=== PATIENT | female | born 1990 | race American Indian/Alaskan Native ===

== ENCOUNTER 2018-03-10 10:35 | Inpatient (IN) | payer SELFPAY ==
[2018-03-10] MEDS ORDERED: LACTATED RINGERS 500 ML IV ONE (11:31)
[2018-03-10] MEDS: PITOCin/NS 20 UNIT/1000ML DRIP 20 UNITS/1,000 ML BAG IV SCH ×2 (12:02→13:19)
[2018-03-10] MEDS ORDERED: PITOCin/NS 20 UNIT/1000ML DRIP 20,000 MILLIUNITS/1,000 ML BAG IV ONE (12:07)
[2018-03-10] MEDS ORDERED: ePHEDrine SULFATE IV PRN (12:15)
[2018-03-10] MEDS ORDERED: BRETHINE IVP PRN (12:15)
[2018-03-10] MEDS ORDERED: NARCAN 0.4 MG/1 ML IV PRN (12:15)
[2018-03-10] MEDS ORDERED: BRETHINE SUB-Q PRN (12:15)
[2018-03-10] MEDS ORDERED: XYLOCAINE 2% INFILTRATI ONE (12:15)
[2018-03-10] MEDS ORDERED: MINERAL OIL PO PRN (12:15)
[2018-03-10] MEDS ORDERED: PHENERGAN PO PRN ×2 (12:15→12:19)
[2018-03-10] MEDS ORDERED: ZOFRAN IV PRN ×2 (12:15→12:19)
--- NOTE | 2018-03-10 12:15 | History and Physical Report ---
History of Present Illness Date of examination: 03/10/18 Date of admission: 03/10/18 10:36 Chief complaint: vaginal bleeding Past History Past Medical History: heart disease (peripartum cardiomyopathy ) Past Surgical History: section - Obstetrical History : 6 Medications and Allergies Allergies Allergy/AdvReac Type Severity Reaction Status Date / Time No Known Allergies Allergy Unverified 03/10/18 11:31 - Vital Signs Vital signs: Vital Signs Pulse BP 90 108/52 03/10/18 11:04 03/10/18 11:04 Temp Pulse Resp BP Pulse Ox 77 97/56 03/10/18 12:17 03/10/18 12:17 Results All other labs normal. Assessment and Plan A/P IUP 35 weeks per patient Walkin from [place] Noted to be with bulging bag obtain records from [place] await for imminent delivery
[2018-03-10] MEDS ORDERED: TYLENOL PO PRN (12:19)
[2018-03-10] MEDS ORDERED: PERCOCET 5/325 PO PRN (12:19)
[2018-03-10] MEDS ORDERED: TUCKS PAD TP PRN (12:19)
[2018-03-10] MEDS ORDERED: DULCOLAX PR PRN (12:19)
[2018-03-10] MEDS ORDERED: BENADRYL PO PRN (12:19)
[2018-03-10] MEDS ORDERED: MILK OF MAGNESIA PO PRN (12:19)
[2018-03-10] MEDS ORDERED: PHENERGAN PR PRN (12:19)
[2018-03-10] MEDS ORDERED: LANSINOH TP PRN (12:19)
--- NOTE | 2018-03-10 12:34 | Procedure Note ---
OB Delivery Note - Delivery Date of Delivery: 03/10/18 Surgeon: RACHEL GERMAN Estimated blood loss: 200cc - Vaginal Delivery presentation: vertex Delivery position: OA Intrapartum events: meconium, precipitous labor- <3hr Delivery induction: none Delivery augmentation: rupture of membranes Delivery monitor: external FHT, external uterine Route of delivery: Indicators for instrumentation: nonreassuring FHR tracing Delivery placenta: spontaneous Delivery cord: 3 umbilical vessels Episiotomy: none Delivery laceration: none Anesthesia: none Delivery comments: Patient was noted to be complete with bulging bag. I evaluated patient and arom with meconium. Awaiting peds staff in [facility]. Patient began pushing but difficult to keep baby on monitor and audible decl. a VACCUUM APPLIED with one push patient delivered a viable female in OA presentation. The Apgars 8 and 9 weighing 6 pounds 15ounces. no lacerations noted. Baby handed to peds. Cord was clamped and cut and delivered intact with 3 vessel cord. Patient tolertated procedure wel.. awaiting records from [place]. Patient will recover in telemetry with unknown condition of jerrod Cardiomyopathy. Discussed with Dr. Castillo and he will accept transfer and will continue following for care. - A at 1 minute: 8 at 5 minutes: 9 Infant Gender: Female (6 pounds 15 ounces)
[2018-03-10] MEDS ORDERED: PITOCin/NS 30 UNIT/500ML 30 UNITS/500 ML BAG IV SCH ×2 (13:00)
[2018-03-10] MEDS ORDERED: LACTATED RINGERS 1,000 ML IV SCH (13:00)
[2018-03-10] MEDS ORDERED: SODIUM CHLORIDE FLUSH SYRINGE 10 ML IV NR (13:00)
[2018-03-10] MEDS: MOTRIN PO SCH ×2 (13:18→22:23)
[2018-03-10 13:49] LABS: Mean Corpuscular HGB Conc 30 % (30-34); Mean Corpuscular Volume 84 fl (79-97); Red Blood Count 4.62 M/mm3 (3.65-5.03); Red Cell Distribution Width 16.8 % (13.2-15.2)
[2018-03-10 13:50] LABS: Hematocrit 38.8 % (30.3-42.9); Hemoglobin 11.8 gm/dl (10.1-14.3); Mean Corpuscular Hemoglobin 26 pg (28-32); Platelet Count 81 K/mm3 (140-440)
[2018-03-10 14:10] LABS: Hepatitis C Virus Antibody Non-Reactive (NonReactive); Rubella IgG Antibody Immune (Immune)
[2018-03-10 14:53] LABS: Bilirubin,Urine NEG (Negative); Blood,Urine LG (Negative); Color,Urine Red (Yellow); Mucus,Urine 2+ /HPF
[2018-03-10 14:54] LABS: RBC,Urine > 182.0 /HPF (0.0-6.0); WBC,Urine > 182.0 /HPF (0.0-6.0)
[2018-03-10 15:05] LABS: Amphetamine Screen,Urine PRESUMPTIVE NEGATIVE; Benzodiazepines Screen,Urine PRESUMPTIVE NEGATIVE; Cannabinoid Screen,Urine PRESUMPTIVE NEGATIVE; Cocaine Screen,Urine PRESUMPTIVE NEGATIVE; Methadone Screen,Urine PRESUMPTIVE NEGATIVE; Opiate Screen,Urine PRESUMPTIVE NEGATIVE
--- NOTE | 2018-03-10 19:21 | Consultation ---
History of Present Illness - Reason for Consult Consult date: 03/10/18 medical management Requesting physician: RACHEL GERMAN - History of Present Illness History of present illness: 27-year-old -[place] female had delivered today around noon time. No postdelivery complications. Full-term and normal vaginal delivery. Patient had twins in the past and it was a . This was in 2011. Peripartum patient was diagnosed with cardiomyopathy in 2011. Patient has been taking Lasix 20 mg once a day potassium 10 mEq once a day and Coreg 3.125 mg twice a day till the conception 9 months ago. Patient was following at [facility]. Patient stopped taking Lasix and potassium and Coreg once the started. Patient did not have any shortness of breath or orthopnea or PND attacks during this . Patient being admitted to telemetry to avoid complications from cardiomyopathy. Patient does not have any chest pain or palpitations. Cardiology also was asked to follow. No fever or chills. Past History Past Medical History: heart failure (secondary to cardiomyopathy), hypertension (borderline) Past Surgical History: Social history: lives with family, full code. denies: smoking, alcohol abuse Family history: hypertension Medications and Allergies Allergies Allergy/AdvReac Type Severity Reaction Status Date / Time No Known Allergies Allergy Unverified 03/10/18 11:31 Home Medications Medication Instructions Recorded Confirmed Last Taken Type Ibuprofen [Motrin] 600 mg PO Q8H PRN #30 tablet 03/10/18 Unknown Rx Formula Tablet 1 tab PO QDAY 03/10/18 03/10/18 Unknown History oxyCODONE /ACETAMINOPHEN [Percocet 1 tab PO Q6HR PRN #30 tablet 03/10/18 Unknown Rx 5/325] Active Meds: Active Medications Acetaminophen (Tylenol) 650 mg PO Q4H PRN PRN Reason: Pain MILD(1-3)/Fever >100.5/LAL Acetaminophen/Hydrocodone Bitart ([place] 5/325) 2 each PO Q6H PRN PRN Reason: Pain, Moderate (4-6) Bisacodyl (Dulcolax) 10 mg LA BID PRN PRN Reason: Constipation Diphenhydramine HCl (Benadryl) 25 mg PO Q6H PRN PRN Reason: Itching Diphtheria/Tetanus/Acell Pertussis (Boostrix) 0.5 ml IM .ONCE ONE Stop: 03/11/18 06:01 Docusate Sodium (Colace) 100 mg PO BID ELIZABETH Ephedrine Sulfate (Ephedrine Sulfate) 10 mg IV Q2M PRN PRN Reason: Hypotension Lactated Ringer's (Lactated Ringers) 1,000 mls @ 65 mls/hr IV DIRECT ELIZABETH Oxytocin/Sodium Chloride (Pitocin/Ns 20 Unit/1000ml Drip) 20 units in 1,000 mls @ 125 mls/hr IV DIRECT ELIZABETH Last Admin: 03/10/18 13:19 Dose: 125 mls/hr Oxytocin/Sodium Chloride (Pitocin/Ns 30 Unit/500ml) 30 units in 500 mls @ 1 mls /hr IV TITR ELIZABETH; Protocol Oxytocin/Sodium Chloride (Pitocin/Ns 30 Unit/500ml) 30 units in 500 mls @ 0 mls /hr IV TITR ELIZABETH; Protocol Ibuprofen (Motrin) 600 mg PO Q6H ELIZABETH Last Admin: 03/10/18 13:18 Dose: 600 mg Magnesium Hydroxide (Milk Of Magnesia) 30 ml PO HS PRN PRN Reason: Constipation Measles/Mumps/Rubella Vaccine Live (M-M-R Ii Vaccine) 0.5 ml SUB-Q .ONCE ONE Stop: 03/11/18 06:01 Mineral Oil (Mineral Oil) 30 ml PO QHS PRN PRN Reason: Constipation Multi-Ingredient Ointment (Lansinoh) 1 applic TP PRN PRN PRN Reason: Sore Nipples Multivitamins/Iron/Calcium ( Vitamin) 1 each PO QDAY [facility] Naloxone HCl (Narcan 0.4 Mg/1 Ml) 0.1 mg IV Q2MIN PRN PRN Reason: Res Rate </= 8 or 02 SAT < 92% Ondansetron HCl (Zofran) 4 mg IV Q8H PRN PRN Reason: Nausea And Vomiting Oxycodone/Acetaminophen (Percocet 5/325) 1 tab PO Q6H PRN PRN Reason: Pain, Moderate (4-6) Promethazine HCl (Phenergan) 25 mg PO Q6H PRN PRN Reason: Nausea And Vomiting Promethazine HCl (Phenergan) 25 mg LA Q6H PRN PRN Reason: Nausea And Vomiting Sodium Chloride (Sodium Chloride Flush Syringe 10 Ml) 10 ml IV PRN NR Stop: 03/11/18 12:59 Terbutaline Sulfate (Brethine) 0.25 mg SUB-Q ONCE PRN PRN Reason: Hyperstimulation/Hypertonicity Terbutaline Sulfate (Brethine) 0.25 mg IVP ONCE PRN PRN Reason: Hyperstimulation/Hypertonicity Witch Arin/Glycerin (Tucks Pad) 1 each TP PRN PRN PRN Reason: Hemorrhoid/cleansing/soothing Review of Systems All systems: negative Constitutional: no weight loss, no weight gain, no fever, no chills Ears, nose, mouth and throat: no hoarseness, no sore throat, no swelling in mouth, no swelling in throat, no odynophagia Breasts: deferred Cardiovascular: no chest pain, no orthopnea, no palpitations, no rapid/ irregular heart beat, no edema, no syncope, no lightheadedness, no shortness of breath Respiratory: no cough, no cough with sputum, no excessive sputum, no hemoptysis , no shortness of breath, no dyspnea on exertion Gastrointestinal: no abdominal pain, no nausea, no vomiting, no diarrhea, no constipation, no change in bowel habits, no hematemesis, no coffee ground emesis Genitourinary Female: no dysuria, no urinary frequency, no urgency, no stress incontinence Menstruation: other (just delivered a baby today) Rectal: no pain Musculoskeletal: no neck stiffness, no neck pain, no shooting arm pain, no arm numbness/tingling, no low back pain, no shooting leg pain, no leg numbness/ tingling, no redness of joints Integumentary: no rash, no pruritis, no redness, no sores, no wounds Neurological: no seizures, no syncope Psychiatric: no anxiety, no memory loss, no change in sleep habits, no sleep disturbances Endocrine: no cold intolerance, no heat intolerance, no polyphagia, no excessive thirst Hematologic/Lymphatic: no easy bruising, no easy bleeding Allergic/Immunologic: no urticaria, no allergic rhinitis, no wheezing Exam - Physical Exam Narrative exam: Sitting in bed comfortably - Constitutional Vitals: Temp Pulse Resp BP Pulse Ox 98.0 F 74 20 106/68 98 03/10/18 17:03 03/10/18 17:03 03/10/18 17:03 03/10/18 17:03 03/10/18 17:03 General appearance: Present: no acute distress, well-nourished - EENT Eyes: Present: PERRL ENT: hearing intact, clear oral mucosa - Neck Neck: Present: supple, normal ROM - Respiratory Respiratory effort: normal Respiratory: bilateral: CTA - Cardiovascular Heart rate: 72 Rhythm: regular Heart Sounds: Present: S1 & S2. Absent: rub, click - Extremities Extremities: no ischemia, pulses intact, pulses symmetrical, No edema Peripheral Pulses: within normal limits - Abdominal General gastrointestinal: Present: soft, non-tender, non-distended, normal bowel sounds Female genitourinary: Present: normal - Rectal Rectal Exam: deferred - Integumentary Integumentary: Present: clear, warm, dry - Musculoskeletal Musculoskeletal: gait normal, strength equal bilaterally - Psychiatric Psychiatric: appropriate mood/affect, intact judgment & insight - Neurologic Neurologic: CNII-XII intact, moves all extremities - Allied Health Allied health notes reviewed: nursing, case management Results - Labs CBC & Chem 7: 03/10/18 12:54 Labs: Abnormal lab results 03/10/18 03/10/18 03/10/18 Range/Units 12:23 12:54 Unknown MCH 26 L (28-32) pg RDW 16.8 H (13.2-15.2) % Plt Count 81 L (140-440) K/mm3 POC ABG pH 7.327 L (7.35-7.45) POC ABG pO2 26 L (80-105) Urine WBC (Auto) > 182.0 H (0.0-6.0) /HPF - Imaging and Cardiology EKG: report reviewed (normal sinus rhythm 72/m) Assessment and Plan - Patient Problems (1) Acute diastolic heart failure Current Visit: Yes Status: Acute Plan to address problem: Mild To initiate Lasix if necessary Check echocardiogram (2) Cardiomyopathy Current Visit: Yes Status: Chronic Qualifiers: Cardiomyopathy type: unspecified Qualified Code(s): I42.9 - Cardiomyopathy , unspecified Plan to address problem: We will get echocardiogram Lasix if necessary Cardiology consult requested Patient is stable and not in any respiratory distress Introduce Coreg by cardiology if necessary Introduce Lasix by cardiology if necessary (3) Urinary tract infection Current Visit: Yes Status: Acute Qualifiers: Urinary tract infection type: acute cystitis Plan to address problem: IV Rocephin 2 g IV piggyback every 24 hours Check urine cultures for sensitivity (4) DVT prophylaxis Current Visit: Yes Status: Acute Plan to address problem: Lovenox 40 mg subcutaneous daily
[2018-03-10] MEDS: ROCEPHIN/NS 2 GM/100 ML 2 GM/100 ML BAG IV SCH (21:15)
[2018-03-10] MEDS: COLACE PO SCH (21:15)
[2018-03-10] MEDS: NORCO 5/325 PO PRN (21:26)
[2018-03-10 22:13] LABS: Alanine Aminotransferase 7 units/L (7-56); Albumin 3.1 g/dL (3.9-5); BUN/Creatinine Ratio 8; Blood Urea Nitrogen 4 mg/dL (7-17); Calcium 8.8 mg/dL (8.4-10.2); Hemolysis Index 3
[2018-03-11] MEDS: MOTRIN PO SCH ×4 (00:28→21:19)
[2018-03-11] MEDS: NORCO 5/325 PO PRN (05:36)
[2018-03-11 05:45] LABS: Basophils % (Auto) 0.3 % (0.0-1.8); Eosinophils # (Auto) 0.1 K/mm3 (0.0-0.4); Eosinophils % (Auto) 1.2 % (0.0-4.3); Hematocrit 32.7 % (30.3-42.9); Hemoglobin 10.7 gm/dl (10.1-14.3); Lymphocytes # (Auto) 3.4 K/mm3 (1.2-5.4); Lymphocytes % (Auto) 33.2 % (13.4-35.0); Mean Corpuscular HGB Conc 33 % (30-34); Mean Corpuscular Volume 78 fl (79-97); Monocytes # (Auto) 0.9 K/mm3 (0.0-0.8); Monocytes % (Auto) 8.9 % (0.0-7.3); Platelet Count 240 K/mm3 (140-440); Red Blood Count 4.19 M/mm3 (3.65-5.03); Red Cell Distribution Width 15.7 % (13.2-15.2)
[2018-03-11 05:46] LABS: Mean Corpuscular Hemoglobin 26 pg (28-32)
[2018-03-11] MEDS ORDERED: M-M-R II VACCINE SUB-Q ONE (06:00)
[2018-03-11] MEDS ORDERED: BOOSTRIX IM ONE (06:00)
[2018-03-11 06:08] LABS: BUN/Creatinine Ratio 7; Blood Urea Nitrogen 4 mg/dL (7-17); Calcium 9.1 mg/dL (8.4-10.2); Hemolysis Index 19
--- NOTE | 2018-03-11 08:33 | Progress Note ---
Assessment and Plan A/P PPD#1 s/p , hx of PP cardiomyopathy on telemetry for cardiac workup Doing well routine orders appreciate medicine and cardiology input Subjective - Subjective Date of service: 03/11/18 Principal diagnosis: s/p Patient reports: appetite normal, voiding normally, pain well controlled, ambulating normally : doing well Objective - Vital Signs Latest vital signs: Vital Signs Temp Pulse Resp BP BP Pulse Ox 03/11/18 07:37 99 03/11/18 04:19 97.4 F L 63 18 115/72 99 03/11/18 00:51 97.6 F 59 L 18 101/47 97 03/10/18 22:09 69 03/10/18 21:59 99 03/10/18 21:29 97.5 F L 68 18 129/84 95 03/10/18 17:03 98.0 F 74 20 106/68 98 03/10/18 13:49 68 128/69 03/10/18 13:45 98.0 F 03/10/18 13:34 70 122/68 03/10/18 13:16 98.4 F 18 03/10/18 13:04 68 129/72 03/10/18 12:57 88 91 03/10/18 12:55 72 98 03/10/18 12:50 86 98 03/10/18 12:43 68 98 03/10/18 12:38 78 98 03/10/18 12:34 75 120/61 03/10/18 12:33 77 100 03/10/18 12:28 72 99 03/10/18 12:26 75 80 L 03/10/18 12:23 75 99 03/10/18 12:19 65 109/59 03/10/18 12:18 67 99 03/10/18 12:17 77 97/56 03/10/18 12:08 86 109/75 03/10/18 11:04 90 108/52 Intake and Output 03/10/18 03/11/18 03/11/18 23:59 07:59 15:59 Output Total 2 Balance -2 Output: Urine 2 Void 2 Other: Total, Output Amount 2 Voiding Method Toilet # Bowel Movements 0 - Exam Breasts: Present: normal Cardiovascular: Present: Regular rate, Normal S1 Lungs: Present: Clear to auscultation, Normal air movement Abdomen: Present: normal appearance, soft, normal bowel sounds. Absent: distention, tenderness, guarding Vulva: both: normal Uterus: Present: normal, firm, fundal height below umbilicus. Absent: bogginess , tenderness Extremities: Present: normal Deep Tendon Reflex Grade: Normal +2 Incision: Present: normal - Labs Labs: Abnormal lab results 03/10/18 03/10/18 03/10/18 Range/Units 12:23 12:54 20:20 MCV (79-97) fl MCH 26 L (28-32) pg RDW 16.8 H (13.2-15.2) % Plt Count 81 L (140-440) K/mm3 [place] % (Auto) (0.0-7.3) % [place] # (0.0-0.8) K/mm3 POC ABG pH 7.327 L (7.35-7.45) POC ABG pO2 26 L (80-105) Potassium 3.5 L (3.6-5.0) mmol/L Carbon Dioxide 17 L (22-30) mmol/L BUN 4 L (7-17) mg/dL Creatinine 0.5 L (0.7-1.2) mg/dL Alkaline Phosphatase 154 H (35-129) units/L Total Protein 5.8 L (6.3-8.2) g/dL Albumin 3.1 L (3.9-5) g/dL Urine WBC (Auto) (0.0-6.0) /HPF 03/10/18 03/11/18 03/11/18 Range/Units Unknown 05:19 05:19 MCV 78 L (79-97) fl MCH 26 L (28-32) pg RDW 15.7 H (13.2-15.2) % Plt Count (140-440) K/mm3 [place] % (Auto) 8.9 H (0.0-7.3) % [place] # 0.9 H (0.0-0.8) K/mm3 POC ABG pH (7.35-7.45) POC ABG pO2 (80-105) Potassium (3.6-5.0) mmol/L Carbon Dioxide (22-30) mmol/L BUN 4 L (7-17) mg/dL Creatinine 0.6 L (0.7-1.2) mg/dL Alkaline Phosphatase (35-129) units/L Total Protein (6.3-8.2) g/dL Albumin (3.9-5) g/dL Urine WBC (Auto) > 182.0 H (0.0-6.0) /HPF
[2018-03-11] MEDS: COLACE PO SCH ×2 (10:23→21:19)
[2018-03-11] MEDS: ROCEPHIN/NS 2 GM/100 ML 2 GM/100 ML BAG IV SCH (10:23)
[2018-03-11] MEDS: PRENATAL VITAMIN PO SCH (10:35)
--- NOTE | 2018-03-11 11:22 | Progress Note ---
Assessment and Plan Assessment and plan: Acute diastolic heart failure Mild To initiate Lasix if necessary Check echocardiogram Cardiomyopathy We will get echocardiogram Lasix if necessary Cardiology consult requested Patient is stable and not in any respiratory distress Introduce Coreg by cardiology if necessary Introduce Lasix by cardiology if necessary Urinary tract infection IV Rocephin 2 g IV piggyback every 24 hours Check urine cultures for sensitivity PPD#1 s/p Cont per OB DVT prophylaxis Lovenox 40 mg subcutaneous daily History Interval history: No new issues Hospitalist Physical - Constitutional Vitals: Temp Pulse Resp BP Pulse Ox 98.7 F 75 20 110/62 98 03/11/18 08:42 03/11/18 08:42 03/11/18 08:42 03/11/18 08:42 03/11/18 08:42 General appearance: Present: no acute distress, well-nourished - EENT Eyes: Present: PERRL, EOM intact ENT: hearing intact, clear oral mucosa, dentition normal - Neck Neck: Present: supple, normal ROM - Respiratory Respiratory effort: normal Respiratory: bilateral: CTA - Cardiovascular Rhythm: regular Heart Sounds: Present: S1 & S2. Absent: gallop, rub - Extremities Extremities: no ischemia, No edema, Full ROM - Abdominal General gastrointestinal: soft, non-tender, non-distended, normal bowel sounds - Integumentary Integumentary: Present: clear, warm, dry - Neurologic Neurologic: CNII-XII intact, moves all extremities Results - Labs CBC & Chem 7: 03/11/18 05:19 03/11/18 05:19 Labs: Laboratory Last Values WBC 10.1 K/mm3 (4.5-11.0) 03/11/18 05:19 RBC 4.19 M/mm3 (3.65-5.03) 03/11/18 05:19 Hgb 10.7 gm/dl (10.1-14.3) 03/11/18 05:19 Hct 32.7 % (30.3-42.9) D 03/11/18 05:19 MCV 78 fl (79-97) L 03/11/18 05:19 MCH 26 pg (28-32) L 03/11/18 05:19 MCHC 33 % (30-34) 03/11/18 05:19 RDW 15.7 % (13.2-15.2) H 03/11/18 05:19 Plt Count 240 K/mm3 (140-440) D 03/11/18 05:19 Lymph % (Auto) 33.2 % (13.4-35.0) 03/11/18 05:19 [place] % (Auto) 8.9 % (0.0-7.3) H 03/11/18 05:19 Eos % (Auto) 1.2 % (0.0-4.3) 03/11/18 05:19 Baso % (Auto) 0.3 % (0.0-1.8) 03/11/18 05:19 Lymph # 3.4 K/mm3 (1.2-5.4) 03/11/18 05:19 [place] # 0.9 K/mm3 (0.0-0.8) H 03/11/18 05:19 Eos # 0.1 K/mm3 (0.0-0.4) 03/11/18 05:19 Baso # 0.0 K/mm3 (0.0-0.1) 03/11/18 05:19 Seg Neutrophils % 56.4 % (40.0-70.0) 03/11/18 05:19 Seg Neutrophils # 5.7 K/mm3 (1.8-7.7) 03/11/18 05:19 Sickle Cell Screen Negative (Negative) 03/10/18 12:54 POC ABG pH 7.327 (7.35-7.45) L 03/10/18 12:23 POC ABG pCO2 40.3 (35-45) 03/10/18 12:23 POC ABG pO2 26 (80-105) L 03/10/18 12:23 POC ABG HCO3 21.1 03/10/18 12:23 POC ABG Total CO2 22 03/10/18 12:23 POC ABG O2 Sat 44 03/10/18 12:23 POC ABG Base Excess -5 03/10/18 12:23 FiO2 21 % 03/10/18 12:23 Sodium 138 mmol/L (137-145) 03/11/18 05:19 Potassium 4.1 mmol/L (3.6-5.0) 03/11/18 05:19 Chloride 103.3 mmol/L (98-107) 03/11/18 05:19 Carbon Dioxide 23 mmol/L (22-30) 03/11/18 05:19 Anion Gap 16 mmol/L 03/11/18 05:19 BUN 4 mg/dL (7-17) L 03/11/18 05:19 Creatinine 0.6 mg/dL (0.7-1.2) L 03/11/18 05:19 Estimated GFR > 60 ml/min 03/11/18 05:19 BUN/Creatinine Ratio 7 % 03/11/18 05:19 Glucose 86 mg/dL (65-100) 03/11/18 05:19 Calcium 9.1 mg/dL (8.4-10.2) 03/11/18 05:19 Total Bilirubin 0.30 mg/dL (0.1-1.2) 03/10/18 20:20 AST 13 units/L (5-40) 03/10/18 20:20 ALT 7 units/L (7-56) 03/10/18 20:20 Alkaline Phosphatase 154 units/L (35-129) H 03/10/18 20:20 Total Protein 5.8 g/dL (6.3-8.2) L 03/10/18 20:20 Albumin 3.1 g/dL (3.9-5) L 03/10/18 20:20 Albumin/Globulin Ratio 1.1 % 03/10/18 20:20 Urine Color Red (Yellow) 03/10/18 Unknown Urine Turbidity Clear (Clear) 03/10/18 Unknown Urine pH 6.0 (5.0-7.0) 03/10/18 Unknown Ur Specific [place] 1.020 (1.003-1.030) 03/10/18 Unknown Urine Protein 100 mg/dl mg/dL (Negative) 03/10/18 Unknown Urine Glucose (UA) 50 mg/dL (Negative) 03/10/18 Unknown Urine Ketones 20 mg/dL (Negative) 03/10/18 Unknown Urine Blood Lg (Negative) 03/10/18 Unknown Urine Nitrite Neg (Negative) 03/10/18 Unknown Urine Bilirubin Neg (Negative) 03/10/18 Unknown Urine Urobilinogen 2.0 mg/dL (<2.0) 03/10/18 Unknown Ur Leukocyte Esterase Tr (Negative) 03/10/18 Unknown Urine WBC (Auto) > 182.0 /HPF (0.0-6.0) H 03/10/18 Unknown Urine RBC (Auto) > 182.0 /HPF (0.0-6.0) 03/10/18 Unknown U Epithel Cells (Auto) 8.0 /HPF (0-13.0) 03/10/18 Unknown Urine WBC Clumps 3+ /HPF 03/10/18 Unknown Urine Mucus 2+ /HPF 03/10/18 Unknown Urine Yeast (Budding) 2+ /HPF 03/10/18 Unknown Urine Opiates Screen Presumptive negative 03/10/18 Unknown Urine Methadone Screen Presumptive negative 03/10/18 Unknown Ur Barbiturates Screen Presumptive negative 03/10/18 Unknown Ur Phencyclidine Scrn Presumptive negative 03/10/18 Unknown Ur Amphetamines Screen Presumptive negative 03/10/18 Unknown U Benzodiazepines Scrn Presumptive negative 03/10/18 Unknown Urine Cocaine Screen Presumptive negative 03/10/18 Unknown U Marijuana (THC) Screen Presumptive negative 03/10/18 Unknown Drugs of Abuse Note Disclamer 03/10/18 Unknown Hep Bs Antigen Non-reactive (Negative) 03/10/18 12:54 Hepatitis C Antibody Non-reactive (NonReactive) 03/10/18 12:54 HIV 1&2 Antibody Rapid Non react (Non React) 03/10/18 12:54 HIV P24 Antigen Non react (Non React) 03/10/18 12:54 Rubella IgG Antibody Immune (Immune) 03/10/18 12:54 Blood Type O POSITIVE 03/10/18 15:50 Antibody Screen Negative 03/10/18 15:50
--- NOTE | 2018-03-11 13:38 | Consultation ---
History of Present Illness Consult date: 03/11/18 Consult reason: other (Peripartum cardiomyopathy) History of present illness: This is a 27yr old female who gives a history of jerrod- cardiomyopathy after giving to twins 6 years ago. Patient reports she had close follow up with [facility] and with an improved ejection fraction was taken off medications. Patient is now 1 day vaginal delivery. A cardiac consultation was requested for jerrod- cardiomyopathy. Patient denies shortness of breath and chest pain. Patient denies palpitations. Patient reports no plans for breast feeding. 12 lead ECG is a normal sinus rhythm. There are no arrhythmias seen on telemetry. Further cardiac evaluation with an echocardiogram shows a normal left ventricular systolic function, ejection fraction 50-55%. Past History Past Surgical History: Social history: lives with family, full code. denies: smoking, alcohol abuse Family history: hypertension Medications and Allergies Allergies Allergy/AdvReac Type Severity Reaction Status Date / Time No Known Allergies Allergy Unverified 03/10/18 11:31 Home Medications Medication Instructions Recorded Confirmed Last Taken Type Ibuprofen [Motrin] 600 mg PO Q8H PRN #30 tablet 03/10/18 Unknown Rx Formula Tablet 1 tab PO QDAY 03/10/18 03/10/18 Unknown History oxyCODONE /ACETAMINOPHEN [Percocet 1 tab PO Q6HR PRN #30 tablet 03/10/18 Unknown Rx 5/325] Active Meds: Active Medications Acetaminophen (Tylenol) 650 mg PO Q4H PRN PRN Reason: Pain MILD(1-3)/Fever >100.5/LAL Acetaminophen/Hydrocodone Bitart ([place] 5/325) 2 each PO Q6H PRN PRN Reason: Pain, Moderate (4-6) Last Admin: 03/11/18 05:36 Dose: 2 each Bisacodyl (Dulcolax) 10 mg IN BID PRN PRN Reason: Constipation Diphenhydramine HCl (Benadryl) 25 mg PO Q6H PRN PRN Reason: Itching Last Admin: 03/11/18 06:08 Dose: 25 mg Docusate Sodium (Colace) 100 mg PO BID ELIZABETH Last Admin: 03/11/18 10:23 Dose: 100 mg Ephedrine Sulfate (Ephedrine Sulfate) 10 mg IV Q2M PRN PRN Reason: Hypotension Lactated Ringer's (Lactated Ringers) 1,000 mls @ 65 mls/hr IV DIRECT ELIZABETH Oxytocin/Sodium Chloride (Pitocin/Ns 20 Unit/1000ml Drip) 20 units in 1,000 mls @ 125 mls/hr IV DIRECT ELIZABETH Last Admin: 03/10/18 13:19 Dose: 125 mls/hr Oxytocin/Sodium Chloride (Pitocin/Ns 30 Unit/500ml) 30 units in 500 mls @ 1 mls /hr IV TITR ELIZABETH; Protocol Oxytocin/Sodium Chloride (Pitocin/Ns 30 Unit/500ml) 30 units in 500 mls @ 0 mls /hr IV TITR ELIZABETH; Protocol Ceftriaxone Sodium (Rocephin/Ns 2 Gm/100 Ml) 2 gm in 100 mls @ 200 mls/hr IV Q24HR ELIZABETH; Protocol Last Admin: 03/11/18 10:23 Dose: 200 mls/hr Ibuprofen (Motrin) 600 mg PO Q6H [facility] Last Admin: 03/11/18 06:08 Dose: 600 mg Magnesium Hydroxide (Milk Of Magnesia) 30 ml PO HS PRN PRN Reason: Constipation Mineral Oil (Mineral Oil) 30 ml PO QHS PRN PRN Reason: Constipation Multi-Ingredient Ointment (Lansinoh) 1 applic TP PRN PRN PRN Reason: Sore Nipples Multivitamins/Iron/Calcium ( Vitamin) 1 each PO QDAY [facility] Last Admin: 03/11/18 10:35 Dose: 1 each Naloxone HCl (Narcan 0.4 Mg/1 Ml) 0.1 mg IV Q2MIN PRN PRN Reason: Res Rate </= 8 or 02 SAT < 92% Ondansetron HCl (Zofran) 4 mg IV Q8H PRN PRN Reason: Nausea And Vomiting Oxycodone/Acetaminophen (Percocet 5/325) 1 tab PO Q6H PRN PRN Reason: Pain, Moderate (4-6) Promethazine HCl (Phenergan) 25 mg PO Q6H PRN PRN Reason: Nausea And Vomiting Promethazine HCl (Phenergan) 25 mg IN Q6H PRN PRN Reason: Nausea And Vomiting Terbutaline Sulfate (Brethine) 0.25 mg SUB-Q ONCE PRN PRN Reason: Hyperstimulation/Hypertonicity Terbutaline Sulfate (Brethine) 0.25 mg IVP ONCE PRN PRN Reason: Hyperstimulation/Hypertonicity Witch Arin/Glycerin (Tucks Pad) 1 each TP PRN PRN PRN Reason: Hemorrhoid/cleansing/soothing Physical Examination Vital Signs Pulse BP 90 108/52 03/10/18 11:04 03/10/18 11:04 General appearance: no acute distress, obese HEENT: Positive: PERRL Cardiac: Positive: Reg Rate and Rhythm Lungs: Positive: Normal Breath Sounds Neuro: Positive: Grossly Intact Extremities: Absent: edema Results 03/11/18 05:19 03/11/18 05:19 Cardiac Enzymes 03/10/18 Range/Units 20:20 AST 13 (5-40) units/L CBC 03/10/18 03/11/18 Range/Units 12:54 05:19 WBC 7.5 10.1 (4.5-11.0) K/mm3 RBC 4.62 4.19 (3.65-5.03) M/mm3 Hgb 11.8 10.7 (10.1-14.3) gm/dl Hct 38.8 32.7 D (30.3-42.9) % Plt Count 81 L 240 D (140-440) K/mm3 Lymph # 3.4 (1.2-5.4) K/mm3 [place] # 0.9 H (0.0-0.8) K/mm3 Eos # 0.1 (0.0-0.4) K/mm3 Baso # 0.0 (0.0-0.1) K/mm3 Comprehensive Metabolic Panel 03/10/18 03/11/18 Range/Units 20:20 05:19 Sodium 138 138 (137-145) mmol/L Potassium 3.5 L 4.1 (3.6-5.0) mmol/L Chloride 102.2 103.3 (98-107) mmol/L Carbon Dioxide 17 L 23 (22-30) mmol/L BUN 4 L 4 L (7-17) mg/dL Creatinine 0.5 L 0.6 L (0.7-1.2) mg/dL Glucose 86 86 (65-100) mg/dL Calcium 8.8 9.1 (8.4-10.2) mg/dL AST 13 (5-40) units/L ALT 7 (7-56) units/L Alkaline Phosphatase 154 H (35-129) units/L Total Protein 5.8 L (6.3-8.2) g/dL Albumin 3.1 L (3.9-5) g/dL Assessment and Plan Vaginal delivery Hx of peripartum cardiomyopathy Echocardiogram shows a normal left ventricular systolic function, ejection fraction 50-55%. No further cardiac workup indicated. Ok for transfer to the mother/baby floor. Patient advised to f/u with her primary lock plater once discharged.
[2018-03-12] MEDS: MOTRIN PO SCH ×4 (03:59→21:40)
[2018-03-12 08:13] LABS: Basophils # (Auto) 0.1 K/mm3 (0.0-0.1); Basophils % (Auto) 0.8 % (0.0-1.8); Eosinophils # (Auto) 0.2 K/mm3 (0.0-0.4); Eosinophils % (Auto) 2.7 % (0.0-4.3); Hematocrit 30.4 % (30.3-42.9); Lymphocytes # (Auto) 3.4 K/mm3 (1.2-5.4); Lymphocytes % (Auto) 46.2 % (13.4-35.0); Mean Corpuscular HGB Conc 33 % (30-34); Mean Corpuscular Volume 78 fl (79-97); Monocytes # (Auto) 0.7 K/mm3 (0.0-0.8); Monocytes % (Auto) 9.4 % (0.0-7.3); Platelet Count 216 K/mm3 (140-440); Red Blood Count 3.91 M/mm3 (3.65-5.03); Red Cell Distribution Width 15.7 % (13.2-15.2)
[2018-03-12 08:21] LABS: Mean Corpuscular Hemoglobin 26 pg (28-32)
[2018-03-12 08:32] LABS: BUN/Creatinine Ratio 10; Blood Urea Nitrogen 6 mg/dL (7-17); Calcium 8.6 mg/dL (8.4-10.2); Hemolysis Index 35
--- NOTE | 2018-03-12 08:59 | Progress Note ---
Assessment and Plan Vaginal delivery Hx of peripartum cardiomyopathy Echocardiogram shows a normal left ventricular systolic function, ejection fraction 50-55%. No further cardiac workup indicated. Ok for transfer to the mother/baby floor. Patient advised to f/u with her primary real estate broker for repeat limited echo in 2-3 months as an outpatient, earlier if symptomatic. Subjective Date of service: 03/12/18 Principal diagnosis: s/p Interval history: Patient has no complaints. No events on telemetry monitoring overnight. Objective Vital Signs Temp Pulse Resp BP Pulse Ox 03/12/18 04:28 97.7 F 59 L 18 98/42 100 03/12/18 00:04 98.5 F 80 18 116/71 97 03/11/18 22:00 101 H 98 03/11/18 19:33 98.6 F 18 112/48 03/11/18 17:25 60 20 122/78 100 03/11/18 16:00 97.8 F 03/11/18 13:41 18 03/11/18 12:00 97.7 F 03/11/18 11:54 71 20 111/69 99 03/11/18 10:00 64 - Physical Examination General: No Apparent Distress HEENT: Positive: PERRL Cardiac: Positive: Reg Rate and Rhythm Lungs: Positive: Decreased Breath Sounds Neuro: Positive: Grossly Intact Extremities: Absent: edema - Labs and Meds CBC 03/12/18 Range/Units 06:10 WBC 7.4 (4.5-11.0) K/mm3 RBC 3.91 (3.65-5.03) M/mm3 Hgb 10.0 L (10.1-14.3) gm/dl Hct 30.4 (30.3-42.9) % Plt Count 216 (140-440) K/mm3 Lymph # 3.4 (1.2-5.4) K/mm3 [place] # 0.7 (0.0-0.8) K/mm3 Eos # 0.2 (0.0-0.4) K/mm3 Baso # 0.1 (0.0-0.1) K/mm3 Comprehensive Metabolic Panel 03/12/18 Range/Units 06:10 Sodium 140 (137-145) mmol/L Potassium 3.7 (3.6-5.0) mmol/L Chloride 103.5 (98-107) mmol/L Carbon Dioxide 21 L (22-30) mmol/L BUN 6 L (7-17) mg/dL Creatinine 0.6 L (0.7-1.2) mg/dL Glucose 67 (65-100) mg/dL Calcium 8.6 (8.4-10.2) mg/dL
[2018-03-12] MEDS: PRENATAL VITAMIN PO SCH (09:48)
[2018-03-12] MEDS: COLACE PO SCH ×2 (09:48→21:35)
--- NOTE | 2018-03-12 11:31 | Progress Note ---
Assessment and Plan Assessment and plan: Acute diastolic heart failure Continue per cardiology. Cardiomyopathy Echocardiogram shows a normal left ventricular systolic function, ejection fraction 50-55%. Cardiology feels there is no further cardiac workup indicated. Okay to transfer patient to mother/baby floor. 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 Urinary tract infection IV Rocephin 2 g IV piggyback every 24 hours Urine cultures are revealing. Antibodies can be discontinued at discharge PPD#1 s/p Cont per OB DVT prophylaxis Lovenox 40 mg subcutaneous daily Disposition. We will sign off. History Interval history: No new issues Hospitalist Physical - Constitutional Vitals: Temp Pulse Resp BP Pulse Ox 98.6 F 75 18 113/74 99 03/12/18 08:00 03/12/18 08:13 03/12/18 08:13 03/12/18 08:13 03/12/18 08:13 General appearance: Present: no acute distress, obese - EENT Eyes: Present: PERRL, EOM intact ENT: hearing intact, clear oral mucosa, dentition normal - Neck Neck: Present: supple, normal ROM - Respiratory Respiratory effort: normal Respiratory: bilateral: CTA - Cardiovascular Rhythm: regular Heart Sounds: Present: S1 & S2. Absent: gallop, rub - Extremities Extremities: no ischemia, No edema, Full ROM - Abdominal General gastrointestinal: soft, non-tender, non-distended, normal bowel sounds - Integumentary Integumentary: Present: clear, warm, dry - Neurologic Neurologic: CNII-XII intact, moves all extremities Results - Labs CBC & Chem 7: 03/12/18 06:10 03/12/18 06:10 Labs: Laboratory Last Values WBC 7.4 K/mm3 (4.5-11.0) 03/12/18 06:10 RBC 3.91 M/mm3 (3.65-5.03) 03/12/18 06:10 Hgb 10.0 gm/dl (10.1-14.3) L 03/12/18 06:10 Hct 30.4 % (30.3-42.9) 03/12/18 06:10 MCV 78 fl (79-97) L 03/12/18 06:10 MCH 26 pg (28-32) L 03/12/18 06:10 MCHC 33 % (30-34) 03/12/18 06:10 RDW 15.7 % (13.2-15.2) H 03/12/18 06:10 Plt Count 216 K/mm3 (140-440) 03/12/18 06:10 Lymph % (Auto) 46.2 % (13.4-35.0) H 03/12/18 06:10 [place] % (Auto) 9.4 % (0.0-7.3) H 03/12/18 06:10 Eos % (Auto) 2.7 % (0.0-4.3) 03/12/18 06:10 Baso % (Auto) 0.8 % (0.0-1.8) 03/12/18 06:10 Lymph # 3.4 K/mm3 (1.2-5.4) 03/12/18 06:10 [place] # 0.7 K/mm3 (0.0-0.8) 03/12/18 06:10 Eos # 0.2 K/mm3 (0.0-0.4) 03/12/18 06:10 Baso # 0.1 K/mm3 (0.0-0.1) 03/12/18 06:10 Seg Neutrophils % 40.9 % (40.0-70.0) 03/12/18 06:10 Seg Neutrophils # 3.0 K/mm3 (1.8-7.7) 03/12/18 06:10 Sickle Cell Screen Negative (Negative) 03/10/18 12:54 POC ABG pH 7.327 (7.35-7.45) L 03/10/18 12:23 POC ABG pCO2 40.3 (35-45) 03/10/18 12:23 POC ABG pO2 26 (80-105) L 03/10/18 12:23 POC ABG HCO3 21.1 03/10/18 12:23 POC ABG Total CO2 22 03/10/18 12:23 POC ABG O2 Sat 44 03/10/18 12:23 POC ABG Base Excess -5 03/10/18 12:23 FiO2 21 % 03/10/18 12:23 Sodium 140 mmol/L (137-145) 03/12/18 06:10 Potassium 3.7 mmol/L (3.6-5.0) 03/12/18 06:10 Chloride 103.5 mmol/L (98-107) 03/12/18 06:10 Carbon Dioxide 21 mmol/L (22-30) L 03/12/18 06:10 Anion Gap 19 mmol/L 03/12/18 06:10 BUN 6 mg/dL (7-17) L 03/12/18 06:10 Creatinine 0.6 mg/dL (0.7-1.2) L 03/12/18 06:10 Estimated GFR > 60 ml/min 03/12/18 06:10 BUN/Creatinine Ratio 10 % 03/12/18 06:10 Glucose 67 mg/dL (65-100) 03/12/18 06:10 Calcium 8.6 mg/dL (8.4-10.2) 03/12/18 06:10 Total Bilirubin 0.30 mg/dL (0.1-1.2) 03/10/18 20:20 AST 13 units/L (5-40) 03/10/18 20:20 ALT 7 units/L (7-56) 03/10/18 20:20 Alkaline Phosphatase 154 units/L (35-129) H 03/10/18 20:20 NT-Pro-B Natriuret Pep 101.5 pg/mL (0-450) 03/12/18 06:10 Total Protein 5.8 g/dL (6.3-8.2) L 03/10/18 20:20 Albumin 3.1 g/dL (3.9-5) L 03/10/18 20:20 Albumin/Globulin Ratio 1.1 % 03/10/18 20:20 Urine Color Red (Yellow) 03/10/18 Unknown Urine Turbidity Clear (Clear) 03/10/18 Unknown Urine pH 6.0 (5.0-7.0) 03/10/18 Unknown Ur Specific [place] 1.020 (1.003-1.030) 03/10/18 Unknown Urine Protein 100 mg/dl mg/dL (Negative) 03/10/18 Unknown Urine Glucose (UA) 50 mg/dL (Negative) 03/10/18 Unknown Urine Ketones 20 mg/dL (Negative) 03/10/18 Unknown Urine Blood Lg (Negative) 03/10/18 Unknown Urine Nitrite Neg (Negative) 03/10/18 Unknown Urine Bilirubin Neg (Negative) 03/10/18 Unknown Urine Urobilinogen 2.0 mg/dL (<2.0) 03/10/18 Unknown Ur Leukocyte Esterase Tr (Negative) 03/10/18 Unknown Urine WBC (Auto) > 182.0 /HPF (0.0-6.0) H 03/10/18 Unknown Urine RBC (Auto) > 182.0 /HPF (0.0-6.0) 03/10/18 Unknown U Epithel Cells (Auto) 8.0 /HPF (0-13.0) 03/10/18 Unknown Urine WBC Clumps 3+ /HPF 03/10/18 Unknown Urine Mucus 2+ /HPF 03/10/18 Unknown Urine Yeast (Budding) 2+ /HPF 03/10/18 Unknown Urine Opiates Screen Presumptive negative 03/10/18 Unknown Urine Methadone Screen Presumptive negative 03/10/18 Unknown Ur Barbiturates Screen Presumptive negative 03/10/18 Unknown Ur Phencyclidine Scrn Presumptive negative 03/10/18 Unknown Ur Amphetamines Screen Presumptive negative 03/10/18 Unknown U Benzodiazepines Scrn Presumptive negative 03/10/18 Unknown Urine Cocaine Screen Presumptive negative 03/10/18 Unknown U Marijuana (THC) Screen Presumptive negative 03/10/18 Unknown Drugs of Abuse Note Disclamer 03/10/18 Unknown RPR Nonreactive (Nonreactive) 03/10/18 12:54 Hep Bs Antigen Non-reactive (Negative) 03/10/18 12:54 Hepatitis C Antibody Non-reactive (NonReactive) 03/10/18 12:54 HIV 1&2 Antibody Rapid Non react (Non React) 03/10/18 12:54 HIV P24 Antigen Non react (Non React) 03/10/18 12:54 Rubella IgG Antibody Immune (Immune) 03/10/18 12:54 Blood Type O POSITIVE 03/10/18 15:50 Antibody Screen Negative 03/10/18 15:50
--- NOTE | 2018-03-12 11:37 | Progress Note ---
Assessment and Plan A: PPD#2 s/p at term H/o peripartum cardiomyopathy s/p Cardiology consultation and Echocardiogram with recommendation for follow up in 2-3 months Morbid Obesity P: Transfer to Mother-Baby Routine care Monitor yesika Subjective - Subjective Date of service: 03/12/18 Principal diagnosis: s/p ; h/o peripartum cardiomyopathy , morbid obesity Interval history: Pt c/o steady vaginal bleeding, and cramping improved with Motrin. Patient reports: appetite normal, voiding normally, no dizzy ambulation [place]: doing well Objective - Vital Signs Latest vital signs: Vital Signs Temp Pulse Resp BP Pulse Ox 03/12/18 08:13 75 18 113/74 99 03/12/18 08:00 98.6 F 03/12/18 04:28 97.7 F 59 L 18 98/42 100 03/12/18 00:04 98.5 F 80 18 116/71 97 03/11/18 22:00 101 H 98 03/11/18 19:33 98.6 F 18 112/48 03/11/18 17:25 60 20 122/78 100 03/11/18 16:00 97.8 F 03/11/18 13:41 18 03/11/18 12:00 97.7 F 03/11/18 11:54 71 20 111/69 99 Intake and Output 03/11/18 03/12/18 03/12/18 22:59 06:59 14:59 Intake Total 700 Balance 700 Intake: Oral 700 Other: Total, Intake Amount 220 Voiding Method Toilet Toilet - Exam Breasts: Present: deferred Cardiovascular: Present: Regular rate Lungs: Present: Clear to auscultation Abdomen: Present: soft (obese ) Uterus: Present: normal Extremities: Present: normal - Labs Labs: Abnormal lab results 03/12/18 03/12/18 Range/Units 06:10 06:10 Hgb 10.0 L (10.1-14.3) gm/dl MCV 78 L (79-97) fl MCH 26 L (28-32) pg RDW 15.7 H (13.2-15.2) % Lymph % (Auto) 46.2 H (13.4-35.0) % [place] % (Auto) 9.4 H (0.0-7.3) % Carbon Dioxide 21 L (22-30) mmol/L BUN 6 L (7-17) mg/dL Creatinine 0.6 L (0.7-1.2) mg/dL
[2018-03-12] MEDS: ROCEPHIN/NS 2 GM/100 ML 2 GM/100 ML BAG IV SCH (12:09)
[2018-03-12] MEDS: NORCO 5/325 PO PRN (21:34)
[2018-03-13] MEDS: MOTRIN PO SCH ×2 (01:47→10:40)
[2018-03-13] MEDS: NORCO 5/325 PO PRN (10:38)
[2018-03-13] MEDS: PRENATAL VITAMIN PO SCH (10:38)
[2018-03-13] MEDS: COLACE PO SCH (10:40)
--- NOTE | 2018-03-13 12:52 | Progress Note ---
Assessment and Plan A: PPD#3 s/p at term H/o peripartum cardiomyopathy s/p Cardiology consultation and Echocardiogram with recommendation for follow up in 2-3 months Morbid Obesity Asymptomatic anemia P: Discharge today with follow up in 1 week at the office. Subjective - Subjective Date of service: 03/13/18 Principal diagnosis: s/p ; h/o peripartum cardiomyopathy , morbid obesity Interval history: Pt reports that her vaginal bleeding and cramping are improved today. Denies chest pain and dyspnea. Patient reports: appetite normal, voiding normally, pain well controlled, ambulating normally, no nauseated [place]: doing well, bottle feeding Objective - Vital Signs Latest vital signs: Vital Signs Temp Pulse Resp BP BP Pulse Ox 03/13/18 10:40 20 03/13/18 10:38 20 03/13/18 07:40 99.0 F 72 18 114/70 99 03/13/18 01:43 98.3 F 89 18 108/81 03/12/18 16:33 99.0 F 71 16 114/70 98 03/12/18 13:10 99.4 F 78 16 120/76 100 03/12/18 13:00 98.2 F 81 20 112/71 Intake and Output 03/12/18 03/13/18 03/13/18 22:59 06:59 14:59 Intake Total 480 580 300 Balance 480 580 300 Intake: IV 100 ROCEPHIN/NS 2 GM/100 ML 2 100 gm In 100 ml @ 200 mls/ hr IV Q24HR ELIZABETH Rx#: [id number] Oral 480 300 Intake, Free Water 480 Other: Total, Intake Amount 480 300 Voiding Method Toilet Toilet # Voids Void 1 2 - Exam Breasts: Present: deferred Cardiovascular: Present: Regular rate Lungs: Present: Clear to auscultation Abdomen: Present: soft (obese ) Uterus: Present: fundal height at umbilicus Extremities: Present: normal
--- NOTE | 2018-03-13 13:19 | Discharge Summary ---
Providers - Providers Date of Admission: 03/10/18 10:36 Date of discharge: 03/13/18 Attending physician: LISESTTE LUZ 03/10/18 12:19 Consult to Physician [CONS] Urgent Comment: Consulting Provider: LIZBETH BRASWELL Physician Instructions: Reason For Exam: peripartum cardiomyopathy 03/10/18 19:31 Consult to Physician [CONS] Routine Comment: Consulting Provider: PRIYANK CORTES Physician Instructions: Reason For Exam: chf Primary care physician: RACHEL GERMAN MD Hospitalization Reason for admission: active labor Delivery: Procedure details: Please see delivery note. Episiotomy: none Laceration: none Other procedures: none complications: none Discharge diagnosis: IUP at term delivered [place] baby: female Hospital course: Pt was admitted to labor and delivery in second stage labor. She underwent a vaginal after section () which she tolerated well. The patient was noted to have a h/o peripartum cardiomyopathy so she was admitted to telemetry and Cardiology was consulted. An echocardiogram was performed which showed normal left ventricular systolic function, ejection fraction 50-55%. Once she was cleared by Cardiology, she was transferred to the Mother-Baby unit and observed for an additional night. By PPD#3, the patient met discharge criteria. She will follow up in the office in 1 week and has been instructed to follow up with Cardiology in 2-3 months. Condition at discharge: Stable Disposition: DC-01 TO HOME OR SELFCARE - Discharge Diagnoses (1) Vaginal after delivery Status: Acute (2) Morbid obesity Status: Acute (3) Anemia Status: Acute Qualifiers: Anemia type: unspecified type Qualified Code(s): D64.9 - Anemia, unspecified (4) Peripartum cardiomyopathy Status: Acute Plan - Discharge Medications Prescriptions: Ibuprofen [Motrin] 600 mg PO Q8H PRN #30 tablet PRN Reason: Pain Nitrofurantoin Monohyd/M-Cryst [Macrobid 100 mg Capsule] 100 mg PO BID #14 capsule oxyCODONE /ACETAMINOPHEN [Percocet 5/325] 1 tab PO Q6HR PRN #30 tablet PRN Reason: Pain - Provider Discharge Summary Activity: routine, no sex for 6 weeks, no heavy lifting 4 weeks, no strenuous exercise Diet: routine Instructions: routine Additional instructions: [] Smoking cessation referral if applicable(refer to patient education folder for contact #) [] Refer to [facility]'s [facility] Booklet Call your doctor immediately for: * Fever > 100.5 * Heavy vaginal bleeding ( >1 pad per hour) * Severe persistent headache * Shortness of breath * Reddened, hot, painful area to leg or breast * Drainage or odor from incision. * Keep incision clean and dry at all times and follow doctor's instructions regarding bathing/showering - Follow up plan Follow up: RACHEL GERMAN MD [Primary Care Provider] - 7 Days
[2018-03-13 16:05] VITALS: BP 122/71
[2018-03-14] MEDS ORDERED: ROCEPHIN/NS 2 GM/100 ML 2 GM/100 ML BAG IV SCH
== END 2018-03-13 18:52 | disposition home or self-care (01) | DRG 774 ==
LOC: TRG 10:35 → EDBD 10:35 → LD 10:36 → TRG 10:37 → 4A 13:44 → OB 03-12 13:08
PROVIDERS: ADMIT Obstetrics & Gynecology; ATTEND Hospitalist
PROC: 10E0XZZ Delivery of Products of Conception, External Approach (ICD-10-PCS; principal; 2018-03-10)
PROC: 10E0XZZ Delivery of Products of Conception, External Approach (ICD-10-PCS; 2018-03-10)
PROC: 10907ZC Drainage of Amniotic Fluid, Therapeutic from Products of Conception, Via Natural or Artificial Opening (ICD-10-PCS; 2018-03-10)
PROC: 4A033R1 Measurement of Arterial Saturation, Peripheral, Percutaneous Approach (ICD-10-PCS; 2018-03-10)
DX: O34.211 Maternal care for low transverse scar from previous cesarean delivery (principal); O75.3 Other infection during labor; I50.31 Acute diastolic (congestive) heart failure; Z68.42 Body mass index [BMI] 45.0-49.9, adult; O99.43 Diseases of the circulatory system complicating the puerperium; I42.9 Cardiomyopathy, unspecified; Z3A.35 35 weeks gestation of pregnancy; O76 Abnormality in fetal heart rate and rhythm complicating labor and delivery; O77.0 Labor and delivery complicated by meconium in amniotic fluid; Z37.0 Single live birth; O99.214 Obesity complicating childbirth; E66.01 Morbid (severe) obesity due to excess calories; O99.03 Anemia complicating the puerperium; D64.9 Anemia, unspecified; Z82.49 Family history of ischemic heart disease and other diseases of the circulatory system
CPT/HCPCS: 36415; 80048; 80053; 80307; 81001; 82803; 83880; 85025; 85027; 85660; 86592; 86706; 86762; 86803; 86850; 86900; 86901; 87086; 87806; 88307; 90715; 93005; 93010; 93306; J0696; J2590